=== PATIENT | female | born 1930 | race Hispanic/Latino ===

== ENCOUNTER 2017-12-29 14:12 | Inpatient (IN) | payer OTHER ==
[2017-12-29 17:12] VITALS: BMI 34.9
[2017-12-29] MEDS: Albuterol-Ipratrop 3 mg / 0.5 (3 ml) UD INH SCH (19:20)
--- NOTE | 2017-12-29 20:31 | CP.PCM.HP ---
History of Present Illness - History of Present Illness History of Present Illness: CC: Pneumonia, deconditioned This is an 87 year old female coming to [facility] to [facility] transitional care unit for further care. She has history of new onset atrial fibrillation and bilateral community acquired pneumonia diagnosed while at [facility], [place]. She also has history of exacerbation of bronchial asthma and arthritis as well as systolic CHF with EF of 45%, left atrial enlargement, and LVH. She is in transitional care unit now for PT/OT, further monitoring and care. She states that she feels well currently and denies any new problems. Patient denies chest pain, shortness of breath, fevers, chills, nausea, vomiting, diarrhea, headache. All of the patient's and/or family's questions were answered at the bedside. Present on Admission - Present on Admission Any Indicators Present on Admission: No History of DVT/PE: No History of Uncontrolled Diabetes: No Review of Systems - Review of Systems Review of Systems: A 12 point review of systems was conducted and found to be negative other than what was mentioned in the HPI. Past Patient History - Infectious Disease Hx of Infectious Diseases: None - Past Medical History & Family History Past Medical History?: Yes Past Family History: Reviewed and not pertinent - Past Social History Smoking Status: Never Smoked Alcohol: None Home Situation {Lives}: With Family - CARDIAC Hx Cardiac Disorders: Yes Hx Atrial Fibrillation: Yes Hx Hypercholesterolemia: Yes Hx Hypertension: Yes Hx Hypotension: Yes - PULMONARY Hx Respiratory Disorders: Yes Hx Asthma: Yes Hx Bronchitis: Yes Hx Chronic Obstructive Pulmonary Disease (COPD): Yes Hx Pneumonia: Yes - NEUROLOGICAL Hx Neurological Disorder: No - HEENT Hx HEENT Problems: No Other/Comment: using glassess for vision - RENAL Hx Chronic Kidney Disease: No - ENDOCRINE/METABOLIC Hx Endocrine Disorders: No - HEMATOLOGICAL/ONCOLOGICAL Hx Blood Disorders: No Hx AIDS: No Hx Human Immunodeficiency Virus (HIV): No - INTEGUMENTARY Hx Dermatological Problems: No - MUSCULOSKELETAL/RHEUMATOLOGICAL Hx Arthritis: Yes (R KNEE; SCIATICA) Hx Falls: No - GASTROINTESTINAL Hx Gastrointestinal Disorders: Yes Hx Gastritis: Yes - GENITOURINARY/GYNECOLOGICAL Hx Genitourinary Disorders: No - PSYCHIATRIC Hx Substance Use: No - SURGICAL HISTORY Hx Surgeries: No - ANESTHESIA Hx Anesthesia: No Hx Anesthesia Reactions: No Hx Malignant Hyperthermia: No Meds Allergies/Adverse Reactions: Allergies Allergy/AdvReac Type Severity Reaction Status Date / Time No Known Allergies Allergy Verified 12/29/17 15:51 Physical Exam - Additional Findings Additional findings: Physical exam: Constitutional- cooperative, awake, alert Head- NCAT, PERRL, nasal cannula Eye- PERRL, EOMI ENT- normal exam, MMM. Neck- normal inspection, supple, no JVD Respiratory- CTAB, + wheezing bilaterally, some rhonchi. no rales appreciated Cardiovascular- RRR, +S1, +S2 no MRG GI/Abdominal- normal bowel sounds, soft, no mass, no hsm Skin- warm, dry Extremities Exam- normal capillary refill, normal inspection Neurological Exam- alert, awake, oriented Psych- normal mood, normal affect Results - Vital Signs Recent Vital Signs: Last Vital Signs Temp 96.8 F L 12/29/17 19:54 Pulse 65 12/29/17 20:09 Resp 20 12/29/17 20:09 BP 130/61 12/29/17 20:09 Pulse Ox 95 12/29/17 20:09 Assessment & Plan - Assessment and Plan (Free Text) Plan: ASSESSMENT/PLAN 1) Bilateral CAP - Continue Levaquin 500 mg po daily for total of 5 more days (12/30 will be day 1 ) - Monitor vitals - PT/OT for reconditioning - Recheck labs in AM - O2 2 L NC (pt supposed to be on bipap at night but refuses) 2) Brochial asthma exacerbation - Continue Duoneb q 6 hours ATC - Continue Solu-medrol 40 mg IVP q 12 hours - Singulair - Robitussin DM PRN for cough/congestion 3) Systolic left sided CHF with EF 45% - continue Lasix 40 mg IVP daily 4) Atrial fibrillation, new onset at [facility] - Continue Cardizem 30 mg po 4x daily - Xarelto for stroke/DVT prophylaxis
[2017-12-29] MEDS: MethylPREDNISolone 40 mg Vial IVP SCH (21:04)
[2017-12-29] MEDS: guaiFENesin DM 200 mg-20 mg/10 ml UD PO PRN (21:06)
[2017-12-30] MEDS: Albuterol-Ipratrop 3 mg / 0.5 (3 ml) UD INH SCH ×4 (01:21→20:16)
[2017-12-30] MEDS: guaiFENesin DM 200 mg-20 mg/10 ml UD PO PRN ×2 (01:32→05:55)
[2017-12-30 07:40] LABS: HEMOGLOBIN 14.2 g/dL (12.0-16.0); MEAN CELL VOLUME 84.7 fl (81.0-99.0); MEAN CORPUSCULAR HEMOGLOBIN 27.6 pg (27.0-31.0); MEAN CORPUSCULAR HGB CONC 32.7 g/dL (33.0-37.0); RBC 5.14 Mil/uL (3.80-5.20); RED CELL DISTRIBUTION WIDTH 15.2 % (11.5-14.5); WHITE BLOOD COUNT 13.8 K/uL (4.8-10.8)
[2017-12-30] MEDS: MethylPREDNISolone 40 mg Vial IVP SCH ×2 (08:42→22:54)
[2017-12-30] MEDS: guaiFENesin 100 mg/5 ml Syrup UD PO PRN ×3 (08:42→22:55)
[2017-12-30] MEDS: Pantoprazole 20 mg EC Tab PO SCH (08:42)
[2017-12-30] MEDS: levoFLOXacin 500 MG TAB PO SCH (08:43)
[2017-12-31] MEDS: Albuterol-Ipratrop 3 mg / 0.5 (3 ml) UD INH SCH ×4 (01:02→19:46)
[2017-12-31] MEDS: MethylPREDNISolone 40 mg Vial IVP SCH ×2 (09:22→21:00)
[2017-12-31] MEDS: levoFLOXacin 500 MG TAB PO SCH (09:23)
[2017-12-31] MEDS: Pantoprazole 20 mg EC Tab PO SCH (09:23)
[2017-12-31 12:24] LABS: BASO % 0.4 % (0.0-2.0); HEMOGLOBIN 13.9 g/dL (12.0-16.0); LYMPH # 0.6 K/uL (1.0-4.3); LYMPH % 6.4 % (20.0-40.0); MEAN CELL VOLUME 85.8 fl (81.0-99.0); MEAN CORPUSCULAR HEMOGLOBIN 28.1 pg (27.0-31.0); MEAN CORPUSCULAR HGB CONC 32.7 g/dL (33.0-37.0); MEAN PLATELET VOLUME 9.4 fl (7.2-11.7); MONO # 0.5 K/uL (0.0-0.8); MONO % 4.8 % (0.0-10.0); NEUT # 8.8 K/uL (1.8-7.0); NEUT % 88.4 % (50.0-75.0); PLATELET COUNT 220 K/uL (130-400); RBC 4.94 Mil/uL (3.80-5.20); RED CELL DISTRIBUTION WIDTH 15.4 % (11.5-14.5)
[2017-12-31 12:33] LABS: CALCIUM 8.7 mg/dL (8.4-10.2)
[2017-12-31 13:39] LABS: BANDS 3 % (0-2); LYMPHOCYTE 6 % (20-50); MONOCYTE 5 % (0-10); NEUTROPHIL 84 % (42-75); REACTIVE LYMPHOCYTES 2 % (0-0); TOTAL CELLS COUNTED 100
[2017-12-31 13:40] LABS: PLATELET ESTIMATE NORMAL (NORMAL)
[2017-12-31 13:42] LABS: HYPOCHROMIC SLIGHT; MICROCYTOSIS SLIGHT; TOXIC GRANULATION PRESENT
[2017-12-31] MEDS: guaiFENesin 100 mg/5 ml Syrup UD PO PRN (18:18)
[2018-01-01] MEDS: Albuterol-Ipratrop 3 mg / 0.5 (3 ml) UD INH SCH ×4 (01:00→19:53)
[2018-01-01] MEDS: guaiFENesin DM 200 mg-20 mg/10 ml UD PO PRN (05:18)
[2018-01-01] MEDS: Pantoprazole 20 mg EC Tab PO SCH (09:19)
[2018-01-01] MEDS: MethylPREDNISolone 40 mg Vial IVP SCH ×2 (09:20→20:20)
[2018-01-01] MEDS: guaiFENesin 100 mg/5 ml Syrup UD PO PRN (20:14)
[2018-01-02] MEDS: guaiFENesin DM 200 mg-20 mg/10 ml UD PO PRN ×2 (00:36→08:03)
[2018-01-02] MEDS: Albuterol-Ipratrop 3 mg / 0.5 (3 ml) UD INH SCH ×4 (01:04→19:28)
[2018-01-02] MEDS: MethylPREDNISolone 40 mg Vial IVP SCH (08:03)
[2018-01-02] MEDS: Pantoprazole 20 mg EC Tab PO SCH (08:05)
[2018-01-02 11:27] LABS: HEMOGLOBIN 14.4 g/dL (12.0-16.0); MEAN CELL VOLUME 85.9 fl (81.0-99.0); MEAN CORPUSCULAR HEMOGLOBIN 27.7 pg (27.0-31.0); MEAN CORPUSCULAR HGB CONC 32.3 g/dL (33.0-37.0); RBC 5.19 Mil/uL (3.80-5.20); RED CELL DISTRIBUTION WIDTH 15.5 % (11.5-14.5); WHITE BLOOD COUNT 14.7 K/uL (4.8-10.8)
[2018-01-02 11:49] LABS: CALCIUM 8.9 mg/dL (8.4-10.2)
[2018-01-02] MEDS ORDERED: Sodium Chloride 0.9% 1,000 ML IV SCH (12:30)
[2018-01-02] MEDS ORDERED: Sodium Chloride 0.9% 500 ML IV SCH (12:32)
[2018-01-03] MEDS: Albuterol-Ipratrop 3 mg / 0.5 (3 ml) UD INH SCH ×4 (02:28→19:18)
[2018-01-03 08:11] LABS: URINE BILIRUBIN NEGATIVE (NEGATIVE); URINE BLOOD NEGATIVE (NEGATIVE); URINE CLARITY CLEAR (Clear); URINE COLOR YELLOW (YELLOW); URINE GLUCOSE (UA) NEG (Normal); URINE LEUKOCYTE ESTERASE NEG Leu/uL (Negative); URINE PROTEIN NEGATIVE (NEGATIVE); URINE UROBILINOGEN 0.2-1.0 mg/dL (0.2-1.0)
[2018-01-03] MEDS: Pantoprazole 20 mg EC Tab PO SCH (08:52)
[2018-01-03 10:01] LABS: ABG ALLEN TEST YES; ARTERIAL BLOOD GAS HCO3 26.3 mmol/L (21-28); ARTERIAL BLOOD GAS HEMOGLOBIN 14.3 g/dL (11.7-17.4); ARTERIAL BLOOD GAS O2 CAPACITY 19.6 mL/dL (16-24); ARTERIAL BLOOD GAS O2 CONTENT 19.3 ML/dL (15-23); ARTERIAL BLOOD GAS O2 SAT 98.6 % (95-98); ARTERIAL BLOOD GAS PCO2 37 mm/Hg (35-45); ARTERIAL BLOOD GAS PH 7.45 (7.35-7.45); ARTERIAL BLOOD GAS PO2 96 mm/Hg (80-100); ARTERIAL BLOOD GAS TCO2 26.8 mmol/L (22-28)
[2018-01-03 10:44] LABS: MEAN CELL VOLUME 85.7 fl (81.0-99.0); MEAN CORPUSCULAR HEMOGLOBIN 28.2 pg (27.0-31.0); MEAN CORPUSCULAR HGB CONC 32.9 g/dL (33.0-37.0); RBC 4.98 Mil/uL (3.80-5.20); RED CELL DISTRIBUTION WIDTH 15.2 % (11.5-14.5); WHITE BLOOD COUNT 14.5 K/uL (4.8-10.8)
[2018-01-03 10:57] LABS: BLOOD UREA NITROGEN 58 mg/dl (7-17); CALCIUM 8.5 mg/dL (8.4-10.2); GFR AFRICAN-AMERICAN > 60; GFR NON-AFRICAN AMERICAN 52
[2018-01-03] MEDS ORDERED: Sod Polystyrene Sulf 15 gm/60 ml Susp PO ONE (11:13)
--- NOTE | 2018-01-03 13:36 | CP.PCM.PN ---
Subjective - Date & Time of Evaluation Date of Evaluation: 01/03/18 Time of Evaluation: 13:35 - Subjective Subjective: doing well no complaints given mild hydration for idania hd stable nad Objective - Vital Signs/Intake and Output Vital Signs (last 24 hours): Temp Pulse Resp BP Pulse Ox 97.9 F 60 20 145/66 96 01/03/18 07:59 01/03/18 08:53 01/03/18 07:59 01/03/18 08:53 01/03/18 07:59 - Medications Medications: Current Medications Albuterol/Ipratropium (Duoneb 3 Mg/0.5 Mg (3 Ml) Ud) 3 ml INH RQ6 [facility] Last Admin: 01/03/18 13:30 Dose: 3 ml Atorvastatin Calcium (Lipitor) 20 mg PO DAILY [facility] Last Admin: 01/03/18 08:52 Dose: 20 mg Diltiazem HCl (Cardizem) 30 mg PO 0200,0800,1400,2000 [facility] Last Admin: 01/03/18 08:53 Dose: 30 mg Furosemide (Lasix) 20 mg PO BID [facility] Last Admin: 01/02/18 08:03 Dose: 20 mg Guaifenesin (Robitussin) 100 mg PO Q4H PRN PRN Reason: Cough Last Admin: 01/01/18 20:14 Dose: 100 mg Guaifenesin/Dextromethorphan (Robitussin Dm) 10 ml PO Q4H PRN PRN Reason: Cough and congestion Last Admin: 01/02/18 08:03 Dose: 10 ml Levofloxacin (Levaquin) 250 mg PO DAILY [facility] PRN Reason: Protocol Last Admin: 01/03/18 08:53 Dose: 250 mg Montelukast Sodium (Singulair) 10 mg PO HS [facility] Last Admin: 01/02/18 21:41 Dose: 10 mg Pantoprazole Sodium (Protonix Ec Tab) 20 mg PO DAILY [facility] Last Admin: 01/03/18 08:52 Dose: 20 mg Rivaroxaban (Xarelto) 20 mg PO DAILY@1700 [facility] PRN Reason: Protocol Last Admin: 01/02/18 16:59 Dose: 20 mg - Labs Labs: 01/03/18 10:18 01/03/18 10:18 - Constitutional Appears: Non-toxic, No Acute Distress - Head Exam Head Exam: ATRAUMATIC, NORMOCEPHALIC - Eye Exam Eye Exam: EOMI, Normal appearance, PERRL Pupil Exam: NORMAL ACCOMODATION - ENT Exam ENT Exam: Mucous Membranes Moist, Normal Oropharynx - Neck Exam Neck Exam: Full ROM, Normal Inspection - Respiratory Exam Respiratory Exam: Clear to Ausculation Bilateral, NORMAL BREATHING PATTERN - Cardiovascular Exam Cardiovascular Exam: RRR, +S1, +S2 - GI/Abdominal Exam GI & Abdominal Exam: Soft, Normal Bowel Sounds - Extremities Exam Extremities Exam: Full ROM, Normal Capillary Refill - Back Exam Back Exam: absent: CVA tenderness (L), CVA tenderness (R), paraspinal tenderness - Neurological Exam Neurological Exam: Alert, Awake - Psychiatric Exam Psychiatric exam: Normal Affect, Normal Mood Assessment and Plan - Assessment and Plan (Free Text) Plan: This is an 87 year old female coming to [facility] to [facility] transitional care unit for further care. She has history of new onset atrial fibrillation and bilateral community acquired pneumonia diagnosed while at [facility]. She also has history of exacerbation of bronchial asthma and arthritis as well as systolic CHF with EF of 45%, left atrial enlargement, and LVH. She is in transitional care unit now for PT/OT, further monitoring and care. She states that she feels well currently and denies any new problems. Patient denies chest pain, shortness of breath, fevers, chills, nausea, vomiting, diarrhea, headache. All of the patient's and/or family's questions were answered at the bedside. 1) Bilateral CAP - Continue Levaquin 500 mg po daily for total of 5 more days (12/30 will be day 1 ) - Monitor vitals - PT/OT for reconditioning - Recheck labs in AM - O2 2 L NC (pt supposed to be on bipap at night but refuses) 2) Brochial asthma exacerbation - Continue Duoneb q 6 hours ATC - Continue Solu-medrol 40 mg IVP q 12 hours - Singulair - Robitussin DM PRN for cough/congestion 3) Systolic left sided CHF with EF 45% - continue Lasix 40 mg 4) Atrial fibrillation, new onset at [facility] - Continue Cardizem 30 mg po 4x daily - Xarelto for stroke/DVT prophylaxis
--- NOTE | 2018-01-03 17:34 | CP.PCM.CON ---
History of Present Illness - History of Present Illness History of Present Illness: 87 year old female seen at bedside in TCU complaining of elongated nails that cause her pain when she walks. Patient is AAO x 3 and NAD at time of visit. Denies any further pedal complaints at this time. Denies any recent N/V/F/C/CP/ SOB/D/posterior calf pain when squeezed Review of Systems - Review of Systems Review of Systems: ROS as per HPI Past Patient History - Infectious Disease Hx of Infectious Diseases: None - Past Medical History & Family History Past Medical History?: Yes Past Family History: Reviewed and not pertinent - Past Social History Smoking Status: Never Smoked Alcohol: None Home Situation {Lives}: With Family - CARDIAC Hx Cardiac Disorders: Yes Hx Hypercholesterolemia: Yes Hx Hypertension: Yes - PULMONARY Hx Chronic Obstructive Pulmonary Disease (COPD): Yes - NEUROLOGICAL Hx Neurological Disorder: No - HEENT Hx HEENT Problems: No Other/Comment: using glassess for vision - RENAL Hx Chronic Kidney Disease: No - ENDOCRINE/METABOLIC Hx Endocrine Disorders: No - HEMATOLOGICAL/ONCOLOGICAL Hx Blood Disorders: No Hx AIDS: No Hx Human Immunodeficiency Virus (HIV): No - INTEGUMENTARY Hx Dermatological Problems: No - MUSCULOSKELETAL/RHEUMATOLOGICAL Hx Arthritis: Yes (R KNEE; SCIATICA) Hx Falls: No - GASTROINTESTINAL Hx Gastrointestinal Disorders: Yes Hx Gastritis: Yes - GENITOURINARY/GYNECOLOGICAL Hx Genitourinary Disorders: No - PSYCHIATRIC Hx Substance Use: No - SURGICAL HISTORY Hx Surgeries: No - ANESTHESIA Hx Anesthesia: No Hx Anesthesia Reactions: No Hx Malignant Hyperthermia: No Meds Allergies/Adverse Reactions: Allergies Allergy/AdvReac Type Severity Reaction Status Date / Time No Known Allergies Allergy Verified 12/29/17 15:51 - Medications Medications: Current Medications Albuterol/Ipratropium (Duoneb 3 Mg/0.5 Mg (3 Ml) Ud) 3 ml INH RQ6 [facility] Last Admin: 01/03/18 13:30 Dose: 3 ml Atorvastatin Calcium (Lipitor) 20 mg PO DAILY [facility] Last Admin: 01/03/18 08:52 Dose: 20 mg Diltiazem HCl (Cardizem) 30 mg PO 0200,0800,1400,2000 [facility] Last Admin: 01/03/18 14:00 Dose: Not Given Furosemide (Lasix) 20 mg PO DAILY [facility] Guaifenesin (Robitussin) 100 mg PO Q4H PRN PRN Reason: Cough Last Admin: 01/01/18 20:14 Dose: 100 mg Guaifenesin/Dextromethorphan (Robitussin Dm) 10 ml PO Q4H PRN PRN Reason: Cough and congestion Last Admin: 01/02/18 08:03 Dose: 10 ml Levofloxacin (Levaquin) 250 mg PO DAILY [facility] PRN Reason: Protocol Last Admin: 01/03/18 08:53 Dose: 250 mg Montelukast Sodium (Singulair) 10 mg PO HS [facility] Last Admin: 01/02/18 21:41 Dose: 10 mg Pantoprazole Sodium (Protonix Ec Tab) 20 mg PO DAILY [facility] Last Admin: 01/03/18 08:52 Dose: 20 mg Rivaroxaban (Xarelto) 20 mg PO DAILY@1700 [facility] PRN Reason: Protocol Last Admin: 01/03/18 16:50 Dose: 20 mg Physical Exam - Constitutional Appears: Well, Non-toxic, No Acute Distress - Extremities Exam Additional comments: LE focused exam: Vasc: DP/PT pulses palpable 1/4 b/l secondary to 1+ pitting edema to b/l feet. CFT < 3 seconds to all digits. Skin temperature warm to warm from proximal to distal. Neuro: Epicritic and protective sensation grossly intact b/l Derm: Elongated, thickened, dystrophic, onychocryptic nails noted 1-5 b/l. Otherwise, no open lesions, wounds, maceration, xerosis, abnormal pigmentation or abnormal growths noted b/l MSK: POP to distal digits secondary to elongated nails - Neurological Exam Neurological exam: Alert, Oriented x3 - Psychiatric Exam Psychiatric exam: Normal Affect, Normal Mood Results - Vital Signs Recent Vital Signs: Last Vital Signs Temp 97.0 F L 01/03/18 15:59 Pulse 60 01/03/18 15:59 Resp 20 01/03/18 15:59 BP 128/50 L 01/03/18 15:59 Pulse Ox 94 L 01/03/18 15:59 - Labs Result Diagrams: 01/03/18 10:18 01/03/18 10:18 Labs: Laboratory Results - last 24 hr 01/03/18 01/03/18 01/03/18 08:01 09:45 10:18 WBC 14.5 H RBC 4.98 Hgb 14.0 Hct 42.7 MCV 85.7 MCH 28.2 MCHC 32.9 L RDW 15.2 H Plt Count 217 pCO2 37 pO2 96 HCO3 26.3 ABG pH 7.45 ABG Total CO2 26.8 ABG O2 Saturation 98.6 H ABG O2 Content 19.3 ABG Base Excess 1.8 ABG Hemoglobin 14.3 ABG Carboxyhemoglobin 1.7 H POC ABG HHb (Measured) 1.4 ABG Methemoglobin 1.4 ABG O2 Capacity 19.6 Bg Test Yes A-a O2 Difference 57.0 Hgb O2 Saturation 95.6 FiO2 28.0 Sodium Potassium Chloride Carbon Dioxide Anion Gap BUN Creatinine Est GFR ( Amer) Est GFR (Non-Af Amer) Random Glucose Calcium Urine Color Yellow Urine Clarity Clear Urine pH 6.0 Ur Specific [place] 1.017 Urine Protein Negative Urine Glucose (UA) Neg Urine Ketones Negative Urine Blood Negative Urine Nitrate Negative Urine Bilirubin Negative Urine Urobilinogen 0.2-1.0 Ur Leukocyte Esterase Neg Urine RBC (Auto) 1 Urine Microscopic WBC < 1 01/03/18 10:18 WBC RBC Hgb Hct MCV MCH MCHC RDW Plt Count pCO2 pO2 HCO3 ABG pH ABG Total CO2 ABG O2 Saturation ABG O2 Content ABG Base Excess ABG Hemoglobin ABG Carboxyhemoglobin POC ABG HHb (Measured) ABG Methemoglobin ABG O2 Capacity Bg Test A-a O2 Difference Hgb O2 Saturation FiO2 Sodium 139 Potassium 5.4 H Chloride 96 L Carbon Dioxide 28 Anion Gap 20 BUN 58 H Creatinine 1.0 Est GFR ( Amer) > 60 Est GFR (Non-Af Amer) 52 Random Glucose 169 H Calcium 8.5 Urine Color Urine Clarity Urine pH Ur Specific [place] Urine Protein Urine Glucose (UA) Urine Ketones Urine Blood Urine Nitrate Urine Bilirubin Urine Urobilinogen Ur Leukocyte Esterase Urine RBC (Auto) Urine Microscopic WBC Assessment & Plan - Assessment and Plan (Free Text) Assessment: 87 year old female seen at bedside for elongated, dystrophic, painful nails b/l Plan: Patient seen and evaluated at bedside Charts, labs, vitals reviewed Plan discussed with attending Dr. Rdz Aseptic onychoreduction of nails 1-5 down to an appropriate level performed b/l without incident Podiatry will sign off at this time Please reconsult in the future as needed - Date & Time Date: 01/03/18 Time: 17:36
[2018-01-03] MEDS: guaiFENesin 100 mg/5 ml Syrup UD PO PRN (21:50)
[2018-01-04] MEDS: Albuterol-Ipratrop 3 mg / 0.5 (3 ml) UD INH SCH ×4 (01:00→19:20)
[2018-01-04 06:48] LABS: BLOOD UREA NITROGEN 57 mg/dl (7-17); CALCIUM 8.2 mg/dL (8.4-10.2); GFR AFRICAN-AMERICAN > 60; GFR NON-AFRICAN AMERICAN 59
[2018-01-04] MEDS: Pantoprazole 20 mg EC Tab PO SCH (08:37)
[2018-01-04] MEDS: guaiFENesin DM 200 mg-20 mg/10 ml UD PO PRN (08:37)
[2018-01-04 09:20] LABS: BASO # 0.1 K/uL (0.0-0.2); BASO % 0.8 % (0.0-2.0); EOS # 0.2 K/uL (0.0-0.7); EOS % 1.8 % (0.0-4.0); HEMOGLOBIN 14.6 g/dL (12.0-16.0); LYMPH # 2.7 K/uL (1.0-4.3); LYMPH % 21.6 % (20.0-40.0); MEAN CELL VOLUME 84.7 fl (81.0-99.0); MEAN CORPUSCULAR HEMOGLOBIN 27.9 pg (27.0-31.0); MEAN CORPUSCULAR HGB CONC 32.9 g/dL (33.0-37.0); MEAN PLATELET VOLUME 9.4 fl (7.2-11.7); NEUT # 8.3 K/uL (1.8-7.0); NEUT % 67.8 % (50.0-75.0); NRBC % 0.4 % (0.0-0.0); RBC 5.25 Mil/uL (3.80-5.20); RED CELL DISTRIBUTION WIDTH 15.1 % (11.5-14.5); WHITE BLOOD COUNT 12.3 K/uL (4.8-10.8)
[2018-01-05] MEDS: Albuterol-Ipratrop 3 mg / 0.5 (3 ml) UD INH SCH ×3 (00:59→14:43)
[2018-01-05] MEDS: guaiFENesin DM 200 mg-20 mg/10 ml UD PO PRN ×2 (06:35→16:48)
[2018-01-05] MEDS: Pantoprazole 20 mg EC Tab PO SCH (10:40)
[2018-01-05] MEDS ORDERED: Albuterol-Ipratrop 3 mg / 0.5 (3 ml) UD INH PRN (16:56)
--- NOTE | 2018-01-05 17:14 | CP.PCM.PN ---
Subjective - Date & Time of Evaluation Date of Evaluation: 01/05/18 Time of Evaluation: 14:00 - Subjective Subjective: Patient seen and examined. Denied any complaint. Objective - Vital Signs/Intake and Output Vital Signs (last 24 hours): Temp Pulse Resp BP Pulse Ox 97.6 F 76 20 124/63 98 01/05/18 08:31 01/05/18 14:59 01/05/18 08:46 01/05/18 08:46 01/05/18 14:59 - Medications Medications: Current Medications Albuterol/Ipratropium (Duoneb 3 Mg/0.5 Mg (3 Ml) Ud) 3 ml INH RQ6 [facility] Last Admin: 01/05/18 14:43 Dose: 3 ml Atorvastatin Calcium (Lipitor) 20 mg PO DAILY [facility] Last Admin: 01/04/18 08:37 Dose: 20 mg Diltiazem HCl (Cardizem) 30 mg PO Q8 [facility] Furosemide (Lasix) 20 mg PO DAILY [facility] Guaifenesin (Robitussin) 100 mg PO Q4H PRN PRN Reason: Cough Last Admin: 01/03/18 21:50 Dose: 100 mg Guaifenesin/Dextromethorphan (Robitussin Dm) 10 ml PO Q4H PRN PRN Reason: Cough and congestion Last Admin: 01/05/18 06:35 Dose: 10 ml Montelukast Sodium (Singulair) 10 mg PO HS [facility] Last Admin: 01/04/18 21:54 Dose: 10 mg Pantoprazole Sodium (Protonix Ec Tab) 20 mg PO DAILY [facility] Last Admin: 01/04/18 08:37 Dose: 20 mg Rivaroxaban (Xarelto) 20 mg PO DAILY@1700 [facility] PRN Reason: Protocol Last Admin: 01/04/18 16:30 Dose: 20 mg - Labs Labs: 01/04/18 09:05 01/04/18 05:30 - Constitutional Appears: No Acute Distress - Head Exam Head Exam: ATRAUMATIC - Eye Exam Eye Exam: absent: Scleral icterus - ENT Exam ENT Exam: Mucous Membranes Moist - Neck Exam Neck Exam: absent: Meningismus - Respiratory Exam Respiratory Exam: absent: Rales, Rhonchi, Wheezes, Respiratory Distress - Cardiovascular Exam Cardiovascular Exam: REGULAR RHYTHM, +S1, +S2 - GI/Abdominal Exam GI & Abdominal Exam: Soft. absent: Tenderness - Rectal Exam Rectal Exam: Deferred - Neurological Exam Neurological Exam: Alert, Oriented x3 - Psychiatric Exam Psychiatric exam: Normal Affect - Skin Skin Exam: Dry, Intact Assessment and Plan - Assessment and Plan (Free Text) Assessment: 87 yo female with history of COPD, HTN, CHF and new onset AFib (none of the EKG showed AFib) admitted at [facility] because of bilateral CAP, COPD and CHF exacerbations. She was initially put on IV Cefepime and Doxycycline empirically for 8 days. For her COPD she was put on bronchodilators, steroid and Montelukast. Lasix was added for her CHF. Patient condition improved then transferred to TCU for continued care. 1. Bilateral CAP received 8 days of IV Cefepime and Doxycycline followed with 5 days of PO Levaquin resolved 2. COPD exacerbation asymptomatic Duoneb via nebulizer q 4hrs prn Montelukast 10mg PO HS 3. CHF, Systolic Dysfunction stable Lasix 20mg PO daily 4. New Onset AFib at [facility]? couldn't find an EKG tracing showing AFib at [facility] on last admission HR controlled continue Cardizem 30mg PO q 8rhs continue Xarelto 20mg PO daily repeat EKG cardiology consult with Dr John
[2018-01-05] MEDS: guaiFENesin 100 mg/5 ml Syrup UD PO PRN (21:05)
[2018-01-06 06:11] LABS: HEMOGLOBIN 11.9 g/dL (12.0-16.0); MEAN CELL VOLUME 85.1 fl (81.0-99.0); MEAN CORPUSCULAR HEMOGLOBIN 27.8 pg (27.0-31.0); MEAN CORPUSCULAR HGB CONC 32.7 g/dL (33.0-37.0); RBC 4.28 Mil/uL (3.80-5.20); RED CELL DISTRIBUTION WIDTH 15.2 % (11.5-14.5); WHITE BLOOD COUNT 9.2 K/uL (4.8-10.8)
[2018-01-06 06:36] LABS: BLOOD UREA NITROGEN 43 mg/dl (7-17); CALCIUM 8.2 mg/dL (8.4-10.2); GFR AFRICAN-AMERICAN > 60; GFR NON-AFRICAN AMERICAN 59
[2018-01-06] MEDS: guaiFENesin DM 200 mg-20 mg/10 ml UD PO PRN (09:49)
[2018-01-06] MEDS: Pantoprazole 20 mg EC Tab PO SCH (09:49)
--- NOTE | 2018-01-06 11:39 | CP.PCM.CON ---
History of Present Illness - History of Present Illness History of Present Illness: This 87-year-old female was treated at [facility] as having chronic obstructive airway disease and atrial fibrillation. The patient was then transferred to the transitional care unit at this institution. This consultation was requested because of worsening pedal edema and atrial fibrillation. The patient denies prior history of cigarette use or asthma or exposure to secondhand smoke. She gives history of being a hypertensive and chronically overweight. Review off her electrocardiograms since her admission to [facility] dating back to December 22 shows evidence of sinus rhythm with frequent premature atrial beats. The patient was never documented to have atrial fibrillation at [facility] or on the electrocardiogram recorded at this institution. An echocardiogram done on december shows mildly depressed left ventricular systolic function with no significant valve abnormality. The electrocardiographic tracing during echocardiogram also shows evidence of sinus rhythm. The patient was being treated with Cardizem and received intravenous fluids for the last couple of days and her furosemide was discontinued. Physical examination shows an elderly overweight female who is alert awake and coherent. She was afebrile with a pulse rate of 70 bpm which was regular. Her jugular venous pressure was not elevated and there was pitting edema over both lower extremities. The pedal pulses were feeble but distinct of present. Her extremities were warm and the nailbeds are pink. There was no central or peripheral cyanosis. There was no clubbing. The apex was vaguely felt in the fifth space the first and second heart sounds were normal there was no murmur or gallop. There were no rales. Her abdomen was soft liver and spleen are not palpable. Her lab data showed that on arrival at [facility] on December 22 her BUN and creatinine were 27 and 0.8 mg percent which sinan to 69 and 1.2 mg percent after diuresis. These are beginning to trend down as the patient was hydrated for last couple of days. Rest of her labs were noted. 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 She is back on a small dose of furosemide. I have discontinued oral anticoagulation since the patient does not have atrial fibrillation. Past Patient History - Infectious Disease Hx of Infectious Diseases: None - Past Medical History & Family History Past Medical History?: Yes Past Family History: Reviewed and not pertinent - Past Social History Smoking Status: Never Smoked Alcohol: None Home Situation {Lives}: With Family - CARDIAC Hx Cardiac Disorders: Yes Hx Hypercholesterolemia: Yes Hx Hypertension: Yes - PULMONARY Hx Chronic Obstructive Pulmonary Disease (COPD): Yes - NEUROLOGICAL Hx Neurological Disorder: No - HEENT Hx HEENT Problems: No Other/Comment: using glassess for vision - RENAL Hx Chronic Kidney Disease: No - ENDOCRINE/METABOLIC Hx Endocrine Disorders: No - HEMATOLOGICAL/ONCOLOGICAL Hx Blood Disorders: No Hx AIDS: No Hx Human Immunodeficiency Virus (HIV): No - INTEGUMENTARY Hx Dermatological Problems: No - MUSCULOSKELETAL/RHEUMATOLOGICAL Hx Arthritis: Yes (R KNEE; SCIATICA) Hx Falls: No - GASTROINTESTINAL Hx Gastrointestinal Disorders: Yes Hx Gastritis: Yes - GENITOURINARY/GYNECOLOGICAL Hx Genitourinary Disorders: No - PSYCHIATRIC Hx Substance Use: No - SURGICAL HISTORY Hx Surgeries: No - ANESTHESIA Hx Anesthesia: No Hx Anesthesia Reactions: No Hx Malignant Hyperthermia: No Meds Allergies/Adverse Reactions: Allergies Allergy/AdvReac Type Severity Reaction Status Date / Time No Known Allergies Allergy Verified 12/29/17 15:51 - Medications Medications: Current Medications Albuterol/Ipratropium (Duoneb 3 Mg/0.5 Mg (3 Ml) Ud) 3 ml INH RQ4 PRN PRN Reason: Shortness of Breath Atorvastatin Calcium (Lipitor) 20 mg PO DAILY [facility] Last Admin: 01/06/18 09:50 Dose: 20 mg Furosemide (Lasix) 20 mg PO DAILY [facility] Guaifenesin (Robitussin) 100 mg PO Q4H PRN PRN Reason: Cough Last Admin: 01/05/18 21:05 Dose: 100 mg Guaifenesin/Dextromethorphan (Robitussin Dm) 10 ml PO Q4H PRN PRN Reason: Cough and congestion Last Admin: 01/06/18 09:49 Dose: 10 ml Losartan Potassium (Cozaar) 50 mg PO DAILY [facility] Metoprolol Tartrate (Lopressor) 12.5 mg PO Q12 [facility] Montelukast Sodium (Singulair) 10 mg PO HS [facility] Last Admin: 01/05/18 21:04 Dose: 10 mg Pantoprazole Sodium (Protonix Ec Tab) 20 mg PO DAILY [facility] Last Admin: 01/06/18 09:49 Dose: 20 mg Results - Vital Signs Recent Vital Signs: Last Vital Signs Temp 97.7 F 01/06/18 08:01 Pulse 70 01/06/18 09:49 Resp 20 01/06/18 08:01 BP 135/63 01/06/18 08:01 Pulse Ox 98 01/06/18 08:01 - Labs Result Diagrams: 01/06/18 05:57 01/06/18 05:57 Labs: Laboratory Results - last 24 hr 01/06/18 01/06/18 05:57 05:57 WBC 9.2 RBC 4.28 Hgb 11.9 L D Hct 36.4 MCV 85.1 MCH 27.8 MCHC 32.7 L RDW 15.2 H Plt Count 116 L D Sodium 141 Potassium 4.3 Chloride 102 Carbon Dioxide 31 H Anion Gap 12 BUN 43 H Creatinine 0.9 Est GFR ( Amer) > 60 Est GFR (Non-Af Amer) 59 Random Glucose 122 H Calcium 8.2 L
[2018-01-07] MEDS: Pantoprazole 20 mg EC Tab PO SCH (08:40)
--- NOTE | 2018-01-07 09:15 | CARD ---
APPROVED REPORT EKG Measurement Heart [id number] <Conclusion> Sinus rhythm with occasional premature ventricular complexes and premature atrial complexes Left anterior fascicular block Left ventricular hypertrophy with QRS widening and repolarization abnormality Abnormal ECG
[2018-01-07] MEDS: guaiFENesin DM 200 mg-20 mg/10 ml UD PO PRN (17:07)
[2018-01-08] MEDS: Pantoprazole 20 mg EC Tab PO SCH (08:35)
[2018-01-08] MEDS: guaiFENesin DM 200 mg-20 mg/10 ml UD PO PRN ×2 (08:35→21:20)
[2018-01-09] MEDS: guaiFENesin DM 200 mg-20 mg/10 ml UD PO PRN (21:15)
[2018-01-10] MEDS: Pantoprazole 20 mg EC Tab PO SCH (07:19)
--- NOTE | 2018-01-10 12:49 | CP.PCM.PN ---
Subjective - Date & Time of Evaluation Date of Evaluation: 01/10/18 Time of Evaluation: 10:00 - Subjective Subjective: Patient was seen and examined at bedside. She states that she feels improved over the last few days. She has no new complaints. Denies cp, sob, fever, chills. Tolerating therapy well. Objective - Vital Signs/Intake and Output Vital Signs (last 24 hours): Temp Pulse Resp BP Pulse Ox 97.9 F 71 18 122/56 L 97 01/10/18 08:12 01/10/18 09:34 01/10/18 08:12 01/10/18 08:25 01/10/18 09:34 - Medications Medications: Current Medications Albuterol/Ipratropium (Duoneb 3 Mg/0.5 Mg (3 Ml) Ud) 3 ml INH RQ4 PRN PRN Reason: Shortness of Breath Last Admin: 01/08/18 21:36 Dose: 3 ml Atorvastatin Calcium (Lipitor) 20 mg PO DAILY@2100 [facility] Last Admin: 01/09/18 21:11 Dose: 20 mg Furosemide (Lasix) 20 mg PO DAILY [facility] Last Admin: 01/10/18 08:25 Dose: 20 mg Guaifenesin (Robitussin) 100 mg PO Q4H PRN PRN Reason: Cough Last Admin: 01/05/18 21:05 Dose: 100 mg Guaifenesin/Dextromethorphan (Robitussin Dm) 10 ml PO Q4H PRN PRN Reason: Cough and congestion Last Admin: 01/09/18 21:15 Dose: 10 ml Losartan Potassium (Cozaar) 50 mg PO DAILY [facility] Last Admin: 01/10/18 08:24 Dose: 50 mg Montelukast Sodium (Singulair) 10 mg PO HS [facility] Last Admin: 01/09/18 21:14 Dose: 10 mg Pantoprazole Sodium (Protonix Ec Tab) 20 mg PO DAILY@0630 [facility] Last Admin: 01/10/18 07:19 Dose: 20 mg - Labs Labs: 01/06/18 05:57 01/06/18 05:57 - Additional Findings Additional findings: Physical exam: Constitutional- cooperative, awake, alert Head- NCAT, PERRL Eye- PERRL, EOMI ENT- normal exam, MMM. Neck- normal inspection, supple, no JVD Respiratory- CTAB, no wheezes rales rhonchi Cardiovascular- regular rhythm, bradycardia, +S1, +S2 no MRG GI/Abdominal- normal bowel sounds, soft, no mass, no hsm Skin- warm, dry Extremities Exam- normal capillary refill, normal inspection Neurological Exam- alert, awake, oriented Psych- normal mood, normal affect Assessment and Plan - Assessment and Plan (Free Text) Plan: 87 yo female with history of COPD, HTN, CHF and new onset AFib (none of the EKG showed AFib) admitted at [facility] because of bilateral CAP, COPD and CHF exacerbations. She was initially put on IV Cefepime and Doxycycline empirically for 8 days. For her COPD she was put on bronchodilators, steroid and Montelukast. Lasix was added for her CHF. Patient condition improved then transferred to TCU for continued care. In TCU Dr. Lagunas evaluated patient and found that she had multifocal atrial tachycardia at [facility] rather than [facility]. 1. Bilateral CAP received 8 days of IV Cefepime and Doxycycline followed with 5 days of PO Levaquin resolved Discharge planning for [place] 2. Deconditioning Continue PT/OT 2. COPD exacerbation asymptomatic Duoneb via nebulizer q 4hrs prn Montelukast 10mg PO HS 3. CHF, Systolic Dysfunction stable Lasix 20mg PO daily 4. Multifocal atrial tachycardia at [facility] Lopressor and Cozaar were prescribed by cardiology; Lopressor is discontinued for now due to new episodes of bradycardia. Will continue to monitor heart rate. Dr. Lagunas discontinued Cardizem and Xarelto as patient did not have atrial fibrillation
[2018-01-10 15:42] VITALS: RESP 20
[2018-01-11] MEDS: Pantoprazole 20 mg EC Tab PO SCH (05:44)
[2018-01-11 08:01] VITALS: BP 130/46; TEMP 98.4; O2SAT 92
[2018-01-11 08:19] VITALS: PULSE 56
--- NOTE | 2018-01-11 11:29 | CP.PCM.DIS ---
Provider - Provider Date of Admission: 12/29/17 17:12 Attending physician: Yuan Ashley DO Primary care physician: Petr Flores MD Consults: Dr. Renetta Lagunas- cardiology Dr. Rdz- podiatry Time Spent in preparation of Discharge (in minutes): 25 Hospital Course - Lab Results Lab Results: Micro Results 01/03/18 08:01 Urine,Clean Catch Urine Culture - Final No Growth (<1,000 CFU/ML) Most Recent Lab Values WBC 9.2 K/uL (4.8-10.8) 01/06/18 05:57 RBC 4.28 Mil/uL (3.80-5.20) 01/06/18 05:57 Hgb 11.9 g/dL (12.0-16.0) L D 01/06/18 05:57 Hct 36.4 % (34.0-47.0) 01/06/18 05:57 MCV 85.1 fl (81.0-99.0) 01/06/18 05:57 MCH 27.8 pg (27.0-31.0) 01/06/18 05:57 MCHC 32.7 g/dL (33.0-37.0) L 01/06/18 05:57 RDW 15.2 % (11.5-14.5) H 01/06/18 05:57 Plt Count 116 K/uL (130-400) L D 01/06/18 05:57 MPV 9.4 fl (7.2-11.7) 01/04/18 09:05 Neut % (Auto) 67.8 % (50.0-75.0) 01/04/18 09:05 Lymph % (Auto) 21.6 % (20.0-40.0) 01/04/18 09:05 Sully % (Auto) 8.0 % (0.0-10.0) 01/04/18 09:05 Eos % (Auto) 1.8 % (0.0-4.0) 01/04/18 09:05 Baso % (Auto) 0.8 % (0.0-2.0) 01/04/18 09:05 Neut # (Auto) 8.3 K/uL (1.8-7.0) H 01/04/18 09:05 Lymph # (Auto) 2.7 K/uL (1.0-4.3) 01/04/18 09:05 Sully # (Auto) 1.0 K/uL (0.0-0.8) H 01/04/18 09:05 Eos # (Auto) 0.2 K/uL (0.0-0.7) 01/04/18 09:05 Baso # (Auto) 0.1 K/uL (0.0-0.2) 01/04/18 09:05 Neutrophils % (Manual) 84 % (42-75) H 12/31/17 11:52 Band Neutrophils % 3 % (0-2) H 12/31/17 11:52 Lymphocytes % (Manual) 6 % (20-50) L 12/31/17 11:52 Reactive Lymphs % 2 % (0-0) H 12/31/17 11:52 Monocytes % (Manual) 5 % (0-10) 12/31/17 11:52 Toxic Granulation Present 12/31/17 11:52 Platelet Estimate Normal (NORMAL) 12/31/17 11:52 Hypochromasia (manual) Slight 12/31/17 11:52 Microcytosis (manual) Slight 12/31/17 11:52 pCO2 37 mm/Hg (35-45) 01/03/18 09:45 pO2 96 mm/Hg (80-100) 01/03/18 09:45 HCO3 26.3 mmol/L (21-28) 01/03/18 09:45 ABG pH 7.45 (7.35-7.45) 01/03/18 09:45 ABG Total CO2 26.8 mmol/L (22-28) 01/03/18 09:45 ABG O2 Saturation 98.6 % (95-98) H 01/03/18 09:45 ABG O2 Content 19.3 ML/dL (15-23) 01/03/18 09:45 ABG Base Excess 1.8 mmol/L (-2.0-3.0) 01/03/18 09:45 ABG Hemoglobin 14.3 g/dL (11.7-17.4) 01/03/18 09:45 ABG Carboxyhemoglobin 1.7 % (0.5-1.5) H 01/03/18 09:45 POC ABG HHb (Measured) 1.4 % (0.0-5.0) 01/03/18 09:45 ABG Methemoglobin 1.4 % (0.0-3.0) 01/03/18 09:45 ABG O2 Capacity 19.6 mL/dL (16-24) 01/03/18 09:45 Bg Test Yes 01/03/18 09:45 A-a O2 Difference 57.0 mm/Hg 01/03/18 09:45 Hgb O2 Saturation 95.6 % (95.0-98.0) 01/03/18 09:45 FiO2 28.0 % 01/03/18 09:45 Sodium 141 mmol/l (132-148) 01/06/18 05:57 Potassium 4.3 MMOL/L (3.6-5.0) 01/06/18 05:57 Chloride 102 mmol/L (98-107) 01/06/18 05:57 Carbon Dioxide 31 mmol/L (22-30) H 01/06/18 05:57 Anion Gap 12 (10-20) 01/06/18 05:57 BUN 43 mg/dl (7-17) H 01/06/18 05:57 Creatinine 0.9 mg/dl (0.7-1.2) 01/06/18 05:57 Est GFR ( Amer) > 60 01/06/18 05:57 Est GFR (Non-Af Amer) 59 01/06/18 05:57 POC Glucose (mg/dL) 133 mg/dL (65-110) H 01/11/18 10:47 Random Glucose 122 mg/dL (65-105) H 01/06/18 05:57 Calcium 8.2 mg/dL (8.4-10.2) L 01/06/18 05:57 Urine Color Yellow (YELLOW) 01/03/18 08:01 Urine Clarity Clear (Clear) 01/03/18 08:01 Urine pH 6.0 (5.0-8.0) 01/03/18 08:01 Ur Specific [place] 1.017 (1.003-1.030) 01/03/18 08:01 Urine Protein Negative mg/dL (NEGATIVE) 01/03/18 08:01 Urine Glucose (UA) Neg mg/dL (Normal) 01/03/18 08:01 Urine Ketones Negative mg/dL (NEGATIVE) 01/03/18 08:01 Urine Blood Negative (NEGATIVE) 01/03/18 08:01 Urine Nitrate Negative (NEGATIVE) 01/03/18 08:01 Urine Bilirubin Negative (NEGATIVE) 01/03/18 08:01 Urine Urobilinogen 0.2-1.0 mg/dL (0.2-1.0) 01/03/18 08:01 Ur Leukocyte Esterase Neg Lili/uL (Negative) 01/03/18 08:01 Urine RBC (Auto) 1 /hpf (0-3) 01/03/18 08:01 Urine Microscopic WBC < 1 /hpf (0-5) 01/03/18 08:01 - Hospital Course Hospital Course: 87 yo female with history of COPD, HTN, CHF and with dx of atrial fibrillation ( none of the EKG showed AFib, ended up being found to be multifocal atrial tachycardia rather than afib) admitted at [facility]3] because of bilateral CAP, COPD and CHF exacerbations. She was initially put on IV Cefepime and Doxycycline empirically for 8 days. For her COPD she was put on bronchodilators , steroid and Montelukast. Lasix was added for her CHF. Patient condition improved then transferred to TCU for continued care. In TCU Dr. Lagunas evaluated patient and found that she had multifocal atrial tachycardia at [facility] rather than atrial fibrillation. She finished her course of IV antibiotics during her stay and recieved PT/OT. Her oxygenation was monitored and she passed a 6 minute walk challenge on room air. Today, she is being discharged to home in stable condition. She is to f/u with her PMD in one week. 1. Bilateral CAP received 8 days of IV Cefepime and Doxycycline followed with 5 days of PO Levaquin resolved passed 6 minute oxygenation walk test 2. Deconditioning Continue PT/OT 2. COPD exacerbation asymptomatic Duoneb via nebulizer q 4hrs prn Montelukast 10mg PO HS 3. CHF, Systolic Dysfunction stable Lasix 20mg PO daily 4. Multifocal atrial tachycardia at [facility] Lopressor and Cozaar were prescribed by cardiology; Lopressor is discontinued for now due to new episodes of bradycardia. Will continue to monitor heart rate. Dr. Lagunas discontinued Cardizem and Xarelto as patient did not have atrial fibrillation Discharge Exam - Head Exam Head Exam: ATRAUMATIC - Additional Findings Additional findings: Physical exam: Constitutional- cooperative, awake, alert Head- NCAT, PERRL Eye- PERRL, EOMI ENT- normal exam, MMM. Neck- normal inspection, supple, no JVD Respiratory- CTAB, no wheezes rales rhonchi Cardiovascular- regular rhythm, bradycardia, +S1, +S2 no MRG GI/Abdominal- normal bowel sounds, soft, no mass, no hsm Skin- warm, dry Extremities Exam- normal capillary refill, normal inspection Neurological Exam- alert, awake, oriented Psych- normal mood, normal affect Discharge Plan - Discharge Medications Prescriptions: Atorvastatin Calcium 20 mg PO DAILY #30 tablet Furosemide [Lasix] 20 mg PO DAILY #30 tab Losartan [Cozaar] 50 mg PO DAILY #30 tab Montelukast [Singulair] 10 mg PO HS #30 tab Omeprazole 20 mg PO DAILY #30 capsule. Pantoprazole [Protonix EC Tab] 20 mg PO DAILY@0630 #30 ect - Follow Up Plan Condition: GOOD Disposition: HOME/ ROUTINE Instructions: COPD Including Emphysema (DC), Community-Acquired Pneumonia, Adult (DC), Asthma (DC) Referrals: Petr Flores MD [Primary Care Provider] -
== END 2018-01-11 11:50 | disposition home or self-care (01) | DRG 194 ==
LOC: H.TCU 17:12
PROVIDERS: ADMIT Internal Medicine; ATTEND Internal Medicine
PROC: F07Z8FZ Transfer Training Treatment using Assistive, Adaptive, Supportive or Protective Equipment (ICD-10-PCS; principal; 2017-12-29)
PROC: F07Z5FZ Bed Mobility Treatment using Assistive, Adaptive, Supportive or Protective Equipment (ICD-10-PCS; 2017-12-29)
PROC: F07 Physical Rehabilitation and Diagnostic Audiology, Rehabilitation, Motor Treatment (ICD-10-PCS; 2017-12-29)
PROC: F08Z1FZ Dressing Techniques Treatment using Assistive, Adaptive, Supportive or Protective Equipment (ICD-10-PCS; 2017-12-29)
PROC: F07L6FZ Therapeutic Exercise Treatment of Musculoskeletal System - Lower Back / Lower Extremity using Assistive, Adaptive, Supportive or Protective Equipment (ICD-10-PCS; 2017-12-29)
DX: J18.9 Pneumonia, unspecified organism (principal); I50.22 Chronic systolic (congestive) heart failure; J44.0 Chronic obstructive pulmonary disease with (acute) lower respiratory infection; I47.1 Supraventricular tachycardia; J45.901 Unspecified asthma with (acute) exacerbation; N17.9 Acute kidney failure, unspecified; J44.1 Chronic obstructive pulmonary disease with (acute) exacerbation; I11.0 Hypertensive heart disease with heart failure; E78.00 Pure hypercholesterolemia, unspecified; L60.3 Nail dystrophy; L60.0 Ingrowing nail; E66.3 Overweight; Z68.34 Body mass index [BMI] 34.0-34.9, adult; R00.1 Bradycardia, unspecified; T44.7X5A Adverse effect of beta-adrenoreceptor antagonists, initial encounter; M19.90 Unspecified osteoarthritis, unspecified site